=== PATIENT | male | born 1975 | race Caucasian/White ===

== ENCOUNTER 2022-07-17 13:26 | Outpatient (CLI) | payer OTHER, SELFPAY ==
--- NOTE | ~2022-07-17 | MR_ITS ---
MRI of the left shoulder Technique: Axial proton-density fat-sat images, coronal proton density fat-sat and T2 fat-sat images, and sagittal T1-weighted and T2 fat-sat images were acquired. Clinical History: Pain Findings: There is minimal degenerative change at the AC joint. No subacromial spur. Coracoclavicular , coracoacromial, and coracohumeral ligaments are intact. There is a probable 4 x 3 mm low-grade articular surface partial tear of the distal infraspinatus ten don insertion. There is mild background supraspinatus/infraspinatus tendinosis. Subscapularis tendon is intact. Tendon of the long head of the biceps is intact. No labral tear identified. Inferior humeral ligament is intact. No degenerative change or effusion of the glenohumeral joint. No fluid distention of the subacromial/subdeltoid bursa. No muscle atrophy or edema. Impression: Probable 4 x 3 mm low-grade articular surface partial tear of the distal infraspinatus tendon inserti on. Mild background rotator cuff tendinosis. Reviewed, dictated and finalized at [facility]. ENGINEER Impression: Probable 4 x 3 mm low-grade articular surface partial tear of the distal infras pinatus tendon insertion. Mild background rotator cuff tendinosis.
== END 2022-07-17 13:27 | disposition home or self-care (01) ==
PROVIDERS: Visit Provider Orthopaedic Surgery
DX: M25.512 Pain in left shoulder (principal); G89.29 Other chronic pain; R93.6 Abnormal findings on diagnostic imaging of limbs
CPT/HCPCS: 73221